=== PATIENT | male | born 1980 | race Two or more races ===

== ENCOUNTER 2021-06-22 15:11 | Emergency (ER) | payer MEDICAID ==
[~2021-06-22] VITALS: Ht 182.9 cm; Wt 102.3 kg
[2021-06-22 15:12] VITALS: BP 112/64
== END 2021-06-22 16:56 | disposition home or self-care (01) ==
LOC: EMS 15:14
DX: S61.210A Laceration without foreign body of right index finger without damage to nail, initial encounter (principal); W45.8XXA Other foreign body or object entering through skin, initial encounter; Y93.89 Activity, other specified; Y92.89 Other specified places as the place of occurrence of the external cause; Y99.8 Other external cause status
CPT/HCPCS: 99281; Z7502